=== PATIENT | male | born 1980 | race American Indian/Alaskan Native ===

== ENCOUNTER 2016-11-01 21:18 | Emergency (ER) | payer OTHER ==
[2016-11-01] MEDS ORDERED: TYLENOL ONE (22:10)
[2016-11-01] MEDS ORDERED: TYLENOL PO ONE (22:35)
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
[2016-11-02] MEDS ORDERED: MOTRIN PO ONE (02:21)
[2016-11-02 02:47] VITALS: BP 121/76
== END 2016-11-02 02:44 | disposition home or self-care (01) ==
LOC: ED 21:18
DX: M54.89 Other dorsalgia (principal); M25.511 Pain in right shoulder; M79.1 Myalgia; R20.9 Unspecified disturbances of skin sensation; I25.2 Old myocardial infarction; J45.909 Unspecified asthma, uncomplicated; F17.200 Nicotine dependence, unspecified, uncomplicated; V49.59XA Passenger injured in collision with other motor vehicles in traffic accident, initial encounter; Y93.9 Activity, unspecified; Y92.9 Unspecified place or not applicable; Y99.9 Unspecified external cause status
CPT/HCPCS: 72040; 99283

== ENCOUNTER 2017-10-03 07:06 | Emergency (ER) | payer OTHER, MEDICAID ==
[2017-10-03 07:54] VITALS: BP 115/74
[2017-10-03] MEDS ORDERED: MOTRIN PO ONE (08:10)
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
--- NOTE | 2017-10-03 08:57 | XRay Report ---
RIGHT WRIST, 4 VIEWS: History: wrist pain, injury. Routine views demonstrate the carpal bones to be well mineralized with well preserved bony mineralization and interosseous joint spaces. The carpal and adjacent articular bones have normal contours. The surrounding soft tissues are unremarkable. IMPRESSION: Unremarkable right wrist.
--- NOTE | 2017-10-03 08:57 | XRay Report ---
RIGHT HAND, 3 views: History: Right hand pain The bony architecture is intact. Bony alignment is normal. No soft tissue abnormalities are seen. The joint spaces appear preserved. IMPRESSION: Normal right hand.
== END 2017-10-03 09:16 | disposition home or self-care (01) ==
LOC: ED 07:06
DX: S13.4XXA Sprain of ligaments of cervical spine, initial encounter (principal); S66.911A Strain of unspecified muscle, fascia and tendon at wrist and hand level, right hand, initial encounter; I25.2 Old myocardial infarction; J45.909 Unspecified asthma, uncomplicated; F17.200 Nicotine dependence, unspecified, uncomplicated; V79.59XA Passenger on bus injured in collision with other motor vehicles in traffic accident, initial encounter; Y93.89 Activity, other specified; Y92.89 Other specified places as the place of occurrence of the external cause; Y99.8 Other external cause status
CPT/HCPCS: 99283

== ENCOUNTER 2018-12-07 10:50 | Emergency (ER) | payer MEDICAID, OTHER ==
[2018-12-07 10:59] VITALS: BP 107/70
--- NOTE | 2018-12-07 11:49 | Emergency Department Report ---
ED ENT HPI - General Chief complaint: Earache Stated complaint: RT EAR PAIN Time Seen by Provider: 12/07/18 11:45 Source: patient Mode of arrival: Ambulatory Limitations: No Limitations - History of Present Illness Initial comments: 38 y/o male comes in for right ear pain and drainage times 1 week. Patient admitts to trying to flush his ears ot prior to the pain. Patient has NKDA. No fever. MD complaint: ear pain Onset/Timin -: week(s) Location: R ear Severity scale (0 -10): 8 Quality: aching, sharp Consistency: constant Improves with: none Worsens with: none Associated Symptoms: discharge from ear - Related Data Previous Rx's Medication Instructions Recorded Last Taken Type Cyclobenzaprine [Flexeril] 10 mg PO TID PRN #15 tablet 11/02/16 Unknown Rx Ibuprofen [Motrin] 600 mg PO Q8H PRN #15 tablet 11/02/16 Unknown Rx Cyclobenzaprine [Flexeril] 10 mg PO QHS PRN #7 tablet 10/03/17 Unknown Rx Ibuprofen [Motrin 600 MG tab] 600 mg PO Q8H PRN #30 tablet 12/07/18 Unknown Rx Neomy/Polymyx B/Hc (Otic) Soln 4 drops AU TID 10 Days #1 bottle 12/07/18 Unknown Rx [Cortisporin (Otic) Soln] Allergies Allergy/AdvReac Type Severity Reaction Status Date / Time No Known Allergies Allergy Verified 12/07/18 10:59 ED Dental HPI - General Chief complaint: Earache Stated complaint: RT EAR PAIN Time Seen by Provider: 12/07/18 11:45 Source: patient Mode of arrival: Ambulatory Limitations: No Limitations - Related Data Previous Rx's Medication Instructions Recorded Last Taken Type Cyclobenzaprine [Flexeril] 10 mg PO TID PRN #15 tablet 11/02/16 Unknown Rx Ibuprofen [Motrin] 600 mg PO Q8H PRN #15 tablet 11/02/16 Unknown Rx Cyclobenzaprine [Flexeril] 10 mg PO QHS PRN #7 tablet 10/03/17 Unknown Rx Ibuprofen [Motrin 600 MG tab] 600 mg PO Q8H PRN #30 tablet 12/07/18 Unknown Rx Neomy/Polymyx B/Hc (Otic) Soln 4 drops AU TID 10 Days #1 bottle 12/07/18 Unknown Rx [Cortisporin (Otic) Soln] Allergies Allergy/AdvReac Type Severity Reaction Status Date / Time No Known Allergies Allergy Verified 12/07/18 10:59 ED Review of Systems ROS: Stated complaint: RT EAR PAIN Other details as noted in HPI Comment: All other systems reviewed and negative ED Past Medical Hx - Past Medical History Previous Medical History?: Yes Hx Heart Attack/AMI: Yes Hx Asthma: Yes Additional medical history: Pt states he has more Hx but unable to remember - Surgical History Past Surgical History?: No - Social History Smoking Status: Current Every Day Smoker Substance Use Type: None - Medications Home Medications: Home Medications Medication Instructions Recorded Confirmed Last Taken Type Cyclobenzaprine [Flexeril] 10 mg PO TID PRN #15 tablet 11/02/16 Unknown Rx Ibuprofen [Motrin] 600 mg PO Q8H PRN #15 tablet 11/02/16 Unknown Rx Cyclobenzaprine [Flexeril] 10 mg PO QHS PRN #7 tablet 10/03/17 Unknown Rx Ibuprofen [Motrin 600 MG tab] 600 mg PO Q8H PRN #30 tablet 12/07/18 Unknown Rx Neomy/Polymyx B/Hc (Otic) Soln 4 drops AU TID 10 Days #1 bottle 12/07/18 Unknown Rx [Cortisporin (Otic) Soln] ED Physical Exam - General Limitations: No Limitations General appearance: alert, in no apparent distress - Head Head exam: Present: atraumatic, normocephalic - Eye Eye exam: Present: normal appearance - Expanded ENT Exam Expanded TM/Canal exam: Canal Discharge: Right TM, Canal Tenderness: Right TM - Neck Neck exam: Present: normal inspection, full ROM - Extremities Exam Extremities exam: Present: normal inspection - Back Exam Back exam: Present: normal inspection - Neurological Exam Neurological exam: Present: alert, oriented X3, normal gait - Psychiatric Psychiatric exam: Present: normal affect, normal mood - Skin Skin exam: Present: warm, dry, intact, normal color. Absent: rash ED Course Vital Signs 12/07/18 10:56 Temperature 98.4 F Pulse Rate 87 Respiratory 18 Rate Blood Pressure 107/70 O2 Sat by Pulse 96 Oximetry ED Medical Decision Making - Medical Decision Making 38 y/o male with rt ear external otitis. Will place on ear drops. Critical care attestation.: If time is entered above; I have spent that time in minutes in the direct care of this critically ill patient, excluding procedure time. ED Disposition Clinical Impression: Otitis external Qualifiers: Otitis externa type: swimmer's ear Chronicity: acute Laterality: right Qualified Code(s): H60.331 - Swimmer's ear, right ear Disposition: TO HOME OR SELFCARE Is pt being admited?: No Does the pt Need Aspirin: No Condition: Stable Instructions: Otitis Externa (ED) Additional Instructions: Complete ear drops as prescribed. Ibuprofen as needed for pain. Follow up with a ENT specialist. Prescriptions: Neomy/Polymyx B/Hc (Otic) Soln [Cortisporin (Otic) Soln] 4 drops AU TID 10 Days #1 bottle Ibuprofen [Motrin 600 MG tab] 600 mg PO Q8H PRN #30 tablet PRN Reason: Pain Referrals: JESSICA CORDOVA MD [Primary Care Provider] - 3-5 Days CHELSIE CANO MD [Staff Physician] - 3-5 Days
== END 2018-12-07 11:58 | disposition home or self-care (01) ==
LOC: ED 10:50
DX: H60.331 Swimmer's ear, right ear (principal); J45.909 Unspecified asthma, uncomplicated; F17.200 Nicotine dependence, unspecified, uncomplicated; Z79.1 Long term (current) use of non-steroidal anti-inflammatories (NSAID); Z79.899 Other long term (current) drug therapy
CPT/HCPCS: 99282

== ENCOUNTER 2020-04-18 09:20 | Emergency (ER) | payer SELFPAY ==
[2020-04-18 09:44] VITALS: BP 119/74
--- NOTE | 2020-04-18 10:39 | Emergency Department Report ---
Chief Complaint: Urogenital-Male Stated Complaint: UNABLE TO URINE Time Seen by Provider: 04/18/20 10:12 - HPI History of Present Illness: This is a 39-year-old male nontoxic, well in appearance with no signs of distress presents to the ED for STD check. Patient stated that his partner called and said has STD. Patient stated he is asymptotic. Denies any penile discharge, testicular pain, or swelling. Patient denies any urinary symptoms. Patient denies any fever, chills, headache, nausea, vomiting, chest pain or shortness of breathe. denies any other symptoms or complaints. Denies any allergies or PMH. - Exam Vital Signs: Vital Signs 04/18/20 09:43 Temperature 98.0 F Pulse Rate 75 Respiratory 18 Rate Blood Pressure 119/74 [Right] O2 Sat by Pulse 99 Oximetry Physical Exam: No abdominal pain. No penile discharge. No flank pain. normal physical exam. MSE screening note: Focused history and physical exam performed. Due to findings the following was ordered: ED Medical Decision Making - Medical Decision Making This is a 39-year-old male that presents with nonmedical emergency complaint. Patient is just requested for a STD test. Patient denies any symptoms. I gave patient many different referrals to follow-up with STD concerns. Patient was instructed to Follow-up with a primary care doctor in 3-5 days or if symptoms worsen and continue return to emergency room as soon as possible. At time of discharge, the patient does not seem toxic or ill in appearance. No acute signs of distress noted. Patient agrees to discharge treatment plan of care. No further questions noted by the patient. ED Disposition for MSE Clinical Impression: Possible exposure to STD Disposition: Z-07 MED SCREENING EXAM-LEFT Is pt being admited?: No Does the pt Need Aspirin: No Condition: Stable Instructions: Safe Sex Additional Instructions: Follow-up with the referrals that you have been provided with JENNIFER or if symptoms worsen and continue return to emergency room as soon as possible. Referrals: PRIMARY CAREMD [Referring] - 3-5 Days JESSICA CORDOVA MD [Staff Physician] - 3-5 Days [facility] [Provider Group] - 3-5 Days
== END 2020-04-18 13:08 | disposition left against medical advice (07) ==
LOC: ED 09:20
DX: R30.0 Dysuria (principal); Z53.21 Procedure and treatment not carried out due to patient leaving prior to being seen by health care provider

== ENCOUNTER 2021-09-12 10:52 | Emergency (ER) | payer SELFPAY ==
[2021-09-12 12:14] VITALS: BP 135/96
--- NOTE | 2021-09-12 12:46 | Emergency Department Report ---
Abscess Boil HPI - HPI Chief Complaint: Urogenital-Male Stated Complaint: SWOLLEN NODES Time Seen by Provider: 09/12/21 12:32 Duration: >1 Week Location: Other Severity: None History: Yes Previous History, No Fever, No Pain, No Purulent Drainage, No Numbness, No Foreign Body, No Insect Bite HPI: Patient is a 40-year-old male that comes to the emergency room with what he reports is a left inguinal swollen lymph node. He states that he has been treated for STDs back in May and then in June. He states that every time he goes to the doctors they tell him that he has lymph nodes enlarged and I think he has an STD but all of his STD test have been negative. He has no dysuria. He has no discharge. He has no testicular pain. He is ambulatory, [id number] and without fever on arrival in the ER. Home Medications: Previous Rx's Medication Instructions Recorded Last Taken Type Cyclobenzaprine [Flexeril] 10 mg PO TID PRN #15 tablet 11/02/16 Unknown Rx Ibuprofen [Motrin] 600 mg PO Q8H PRN #15 tablet 11/02/16 Unknown Rx Cyclobenzaprine [Flexeril] 10 mg PO QHS PRN #7 tablet 10/03/17 Unknown Rx Ibuprofen [Motrin 600 MG tab] 600 mg PO Q8H PRN #30 tablet 12/07/18 Unknown Rx Neomy/Polymyx B/Hc (Otic) Soln 4 drops AU TID 10 Days #1 bottle 12/07/18 Unknown Rx [Cortisporin (Otic) Soln] Albuterol Mdi (or & Nicu Only) 1 puff IH Q4-6H PRN #1 inha 02/27/19 Unknown Rx [ProAir HFA Inhaler] Azithromycin [Zithromax] 500 mg PO QDAY #5 tablet 02/27/19 Unknown Rx guaiFENesin/CODEINE [Robitussin AC] 5 ml PO Q6H PRN #120 ml 02/27/19 Unknown Rx predniSONE [Deltasone] 50 mg PO QDAY #5 tab 02/27/19 Unknown Rx cephALEXin [Keflex] 500 mg PO Q12HR #20 cap 09/12/21 Unknown Rx Allergies/Adverse Reactions: Allergies Allergy/AdvReac Type Severity Reaction Status Date / Time No Known Allergies Allergy Verified 12/07/18 10:59 ED Review of Systems ROS: Stated complaint: SWOLLEN NODES Other details as noted in HPI Comment: All other systems reviewed and negative ED Past Medical Hx - Past Medical History Previous Medical History?: Yes Hx Heart Attack/AMI: Yes Hx Asthma: Yes Additional medical history: Pt states he has more Hx but unable to remember - Surgical History Past Surgical History?: No - Family History Family history: no significant - Social History Smoking Status: Current Every Day Smoker Substance Use Type: None - Medications Home Medications: Home Medications Medication Instructions Recorded Confirmed Last Taken Type Cyclobenzaprine [Flexeril] 10 mg PO TID PRN #15 tablet 11/02/16 Unknown Rx Ibuprofen [Motrin] 600 mg PO Q8H PRN #15 tablet 11/02/16 Unknown Rx Cyclobenzaprine [Flexeril] 10 mg PO QHS PRN #7 tablet 10/03/17 Unknown Rx Ibuprofen [Motrin 600 MG tab] 600 mg PO Q8H PRN #30 tablet 12/07/18 Unknown Rx Neomy/Polymyx B/Hc (Otic) Soln 4 drops AU TID 10 Days #1 bottle 12/07/18 Unknown Rx [Cortisporin (Otic) Soln] Albuterol Mdi (or & Nicu Only) 1 puff IH Q4-6H PRN #1 inha 02/27/19 Unknown Rx [ProAir HFA Inhaler] Azithromycin [Zithromax] 500 mg PO QDAY #5 tablet 02/27/19 Unknown Rx guaiFENesin/CODEINE [Robitussin AC] 5 ml PO Q6H PRN #120 ml 02/27/19 Unknown Rx predniSONE [Deltasone] 50 mg PO QDAY #5 tab 02/27/19 Unknown Rx cephALEXin [Keflex] 500 mg PO Q12HR #20 cap 09/12/21 Unknown Rx ED Abscess Boil Physical Exam - Exam General: Vital signs noted. No distress. Alert and acting appropriately. Exam: Yes Normal Neurologic Exam, Yes Normal Circulation, No Tenderness, No Fluctuance, No Surrounding Cellulites/Erythema, No Lymphangitis, No Crepitation, No Heart Murmur Exam: Patient has a superficial area of what appears to be an ingrown hair that is trying to form into a boil. I suspect this has been suppressed with the antibiotics that he has been on. It is not not a lymph node. It is clearly underneath the skin surface. There is nothing to I&D. Patient cannot tell me what antibiotics he has taken. ED Course Vital Signs 09/12/21 12:13 Temperature 98.6 F Pulse Rate 86 Respiratory 14 Rate Blood Pressure 135/96 [Left] O2 Sat by Pulse 98 Oximetry Critical care attestation.: If time is entered above; I have spent that time in minutes in the direct care of this critically ill patient, excluding procedure time. ED Medical Decision Making - Medical Decision Making Vital Signs 09/12/21 12:13 Temperature 98.6 F Pulse Rate 86 Respiratory 14 Rate Blood Pressure 135/96 [Left] O2 Sat by Pulse 98 Oximetry Patient has normal lymph nodes on exam. There is no enlarged nodes. He has an area of skin that is small that appears to be an ingrown hair that is trying to fester into a boil. However, since he has been on these antibiotics it seems suppressed. The area is about 1 cm x 1 cm and it is clearly induration under the skin. It is not involving the underlying nodes. It is on the mons pubis. Patient denies dysuria or discharge. Patient educated on wound care. Patient discharged home with discharge plan of care including diet, activity, medications and follow-up. He verbalizes understanding - Differential Diagnosis Skin infection versus lymph node ED Disposition Clinical Impression: Ingrown hair, Boil Disposition: 01 HOME / SELF CARE / HOMELESS Is pt being admited?: No Does the pt Need Aspirin: No Condition: Stable Instructions: Ingrown Hair Additional Instructions: Meds as ordered today Stay well-hydrated with water complete your antibiotics and then if this persist follow-up with urology I have given you referral to urology below I have also given you a referral to a primary care doctor Take Motrin and Tylenol for pain Soaking in a bathtub with Epson salts will also help this to go away. Prescriptions: cephALEXin [Keflex] 500 mg PO Q12HR #20 cap Referrals: JESSICA CORDOVA MD [Primary Care Provider] - 3-5 Days LUCIEN BECERRA MD [Staff Physician] - 3-5 Days Time of Disposition: 12:44
== END 2021-09-12 13:03 | disposition home or self-care (01) ==
LOC: ED 10:52
DX: L73.1 Pseudofolliculitis barbae (principal); L02.92 Furuncle, unspecified; F17.200 Nicotine dependence, unspecified, uncomplicated; J45.909 Unspecified asthma, uncomplicated
CPT/HCPCS: 99282